=== PATIENT | female | born 1995 | race Caucasian/White ===

== ENCOUNTER 2016-10-04 11:31 | Emergency (ER) | payer BC ==
[2016-10-04 12:05] VITALS: BP 111/78
--- NOTE | 2016-10-04 12:48 | UC ---
Complaint Female HPI - HPI Summary HPI Summary: Patient is complaining of vaginal dryness, itching a swelling. no discharge, did use monistat last night but more swelling and pain this morning - History Of Current Complaint Chief Complaint: UCGU Stated Complaint: PERSONAL Time Seen by Provider: 10/04/16 12:19 Hx Obtained From: Patient ?: No Onset/Duration: Sudden Onset, Lasting Days Timing: Constant Severity Currently: Moderate Character: Burning Aggravating Factor(s): [place], Urination Alleviating Factor(s): Position - Risk Factors Ectopic Risk Factor: Negative Ovarian Torsion Risk Factor: Negative - Allergies/Home Medications Allergies/Adverse Reactions: Allergies Allergy/AdvReac Type Severity Reaction Status Date / Time No Known Allergies Allergy Verified 10/04/16 12:00 Home Medications: Home Medications Miconazole Nitrate Vaginal [Monistat 7 Combination Pa] 1 kit VA ONCE 10/04/16 [ History Confirmed 10/04/16] PMH/Surg Hx/FS Hx/Imm Hx Previously Healthy: Yes - Surgical History Surgical History: Yes Surgery Procedure, Year, and Place: Cosmetic Rhinoplasty, 2016, [place] - Family History Known Family History: Positive: Hypertension - Social History Alcohol Use: Weekly Substance Use Type: None Smoking Status (MU): Never Smoked Tobacco Review of Systems Constitutional: Negative Skin: Negative Eyes: Negative ENT: Negative Respiratory: Negative Cardiovascular: Negative Gastrointestinal: Negative Genitourinary: Dysuria, Other - vaginal swelling and pain Motor: Negative Neurovascular: Negative Musculoskeletal: Negative Neurological: Negative Psychological: Negative All Other Systems Reviewed And Are Negative: Yes Physical Exam Triage Information Reviewed: Yes Appearance: Well-Appearing, Well-Nourished, Pain Distress Vital Signs: Initial Vital Signs Temp 98 F 10/04/16 11:57 Pulse 94 10/04/16 11:57 Resp 16 10/04/16 11:57 BP 111/78 10/04/16 11:57 Pulse Ox 100 10/04/16 11:57 Vital Signs Reviewed: Yes Eye Exam: Normal Eyes: Positive: Conjunctiva Clear ENT Exam: Normal ENT: Positive: Normal ENT inspection, Hearing grossly normal, Pharynx normal, TMs normal Dental Exam: Normal Neck exam: Normal Respiratory Exam: Normal Cardiovascular Exam: Normal Abdominal Exam: Normal Abdomen Description: Positive: Other: - labia is swollen, vaginal wall red and irritated, white cheesy discharge noted, mild fishy odor, no lesions noted internally or externally. patient tolerated well Bowel Sounds: Positive: Present Musculoskeletal Exam: Normal Neurological Exam: Normal Psychological Exam: Normal Skin Exam: Normal Complaint Female Dx - Course Course Of Treatment: hx obtained, exam performed, meds reviewed, pelvic performed, cultures sent treated for UTI and yeast infection. - Differential Dx/Diagnosis Differential Diagnosis/HQI/PQRI: Sexually Transmitted Disease, Ureteral Stone, Urinary Tract Infection Provider Diagnoses: vulvavaginitis. UTI Discharge - Discharge Plan Condition: Stable Disposition: HOME Prescriptions: Fluconazole 150 MG (NF) [Diflucan 150 mg (NF)] 150 mg PO WEEKLY #2 tab Sulfamethox/Trimethoprim DS* [Bactrim DS 800/160 TAB*] 1 tab PO BID #6 tab Patient Education Materials: Vulvovaginal Candidiasis (ED), Urinary Tract Infection in Women (ED) Additional Instructions: 1. Cultures will be available in 2-3 days. 2. Take the medications as prescribed. 3. Always have protected sex and use lubrication to prevent injury 4. Coconut oil is great for yeast infections, use daily 5. increase fluid intake.
== END 2016-10-04 13:02 | disposition home or self-care (01) ==
LOC: EDSEX → UCCORT 11:31
DX: N76.0 Acute vaginitis (principal); N39.0 Urinary tract infection, site not specified
CPT/HCPCS: 81003; 87086; 87480; 87491; 87510; 87591; 87661; 99202; G0463